=== PATIENT | male | born 1990 ===

== ENCOUNTER 2018-04-12 17:04 | Emergency (ER) | payer OTHER ==
[2018-04-12] MEDS ORDERED: Lidocaine 1%* 5 ML VIAL INJ ONE (17:49)
--- NOTE | 2018-04-12 17:49 | ED ---
Laceration/Wound HPI - HPI Summary HPI Summary: 27 year old male presents with left index finger laceration. He cut it on a knife. area continues to bleed. no foreign body. tetanus is up to date. full ROM of finger. no numbness or tingling. no medical conditions. - History of Current Complaint Stated Complaint: FINGER LACERATION Time Seen by Provider: 04/12/18 17:45 Pain Intensity: 3 - Allergy/Home Medications Allergies/Adverse Reactions: Allergies Allergy/AdvReac Type Severity Reaction Status Date / Time No Known Allergies Allergy Verified 04/12/18 17:36 Home Medications: Home Medications Budesonide [Rhinocort Allergy] 8.43 ml BOTH NARES DAILY PRN 04/12/18 [History Confirmed 04/12/18] PMH/Surg Hx/FS Hx/Imm Hx Endocrine/Hematology History: Denies: Hx Anticoagulant Therapy Respiratory History: Denies: Hx Asthma Infectious Disease History: No Infectious Disease History: Denies: Traveled Outside the [place] in Last 30 Days - Family History Known Family History: Positive: Non-Contributory - Social History Alcohol Use: None Substance Use Type: Reports: None Smoking Status (MU): Never Smoked Tobacco Review of Systems Negative: Fever Negative: Chest Pain Negative: Shortness Of Breath Positive: Other - left index finger laceration All Other Systems Reviewed And Are Negative: Yes Physical Exam Triage Information Reviewed: Yes Vital Signs On Initial Exam: Initial Vitals Temp Pulse Resp BP Pulse Ox 98 F 66 12 115/62 100 04/12/18 17:29 04/12/18 17:29 04/12/18 17:29 04/12/18 17:29 04/12/18 17:29 Vital Signs Reviewed: Yes Appearance: Positive: Well-Appearing Skin: Positive: Warm, Dry, Other - 2cm superficial laceration to left index finger near nailbed Head/Face: Positive: Normal Head/Face Inspection Eyes: Positive: Normal, Conjunctiva Clear ENT: Positive: Pharynx normal Respiratory/Lung Sounds: Positive: Clear to Auscultation, Breath Sounds Present Cardiovascular: Positive: Normal, RRR Musculoskeletal: Positive: Strength/ROM Intact - left index finger, Other - capillary refill<2 secs Neurological: Positive: Normal Psychiatric: Positive: Normal Procedures - Laceration/Wound Repair 1 Location: Other - left index finger Description: Irregular Anesthesia: Digital, 1.0% Length, Depth and Shape: 2cm superficial Irrigated w/ Saline (ccs): 200 Suture Type: Prolene Number of Sutures: 2 Sterile Dressing Applied?: Yes - telfa and coband Diagnostics - Vital Signs Vital Signs Temp Pulse Resp BP Pulse Ox 04/12/18 17:29 98 F 66 12 115/62 100 - Laboratory Lab Statement: Any lab studies that have been ordered have been reviewed, and results considered in the medical decision making process. Laceration Repair Course/Dx - Course Course Of Treatment: 27 year old male presents with left index finger laceration. He cut it on a knife. area continues to bleed. no foreign body. tetanus is up to date. full ROM of finger. no numbness or tingling. no medical conditions. on exam has 2cm superficial laceration near end of left index finger laceration. cleaned area and closed with 2 sutures and placed pressure dressing. patient understand and agrees with plan. - Differential Dx Differental Diagnoses: Abrasion, Avulsion, Laceration - Clinical Impression Provider Diagnoses: Laceration of left index finger Discharge - Sign-Out/Discharge Documenting (check all that apply): Patient Departure All imaging exams completed and their final reports reviewed: No Studies - Discharge Plan Condition: Good Disposition: HOME Patient Education Materials: Care For Your Stitches (ED) Referrals: No Primary Care Phys,NOPCP [Primary Care Provider] - Additional Instructions: keep dressing on for 48 hours, change at that point and rewrap Take Tylenol or ibuprofen for pain every 6 hours as needed Return to ED or primary in 8-10 days to have sutures removed Return to ED if develop signs of infection such as fever, spreading redness, or pus. - Billing Disposition and Condition Condition: GOOD Disposition: Home - Attestation Statements Provider Attestation: I was available for consult. This patient was seen by the [facility]. The patient was not presented to, seen by, or examined by me. -Yefri
== END 2018-04-12 18:30 | disposition home or self-care (01) ==
LOC: UCEAST 17:04
DX: S61.211A Laceration without foreign body of left index finger without damage to nail, initial encounter (principal); W26.0XXA Contact with knife, initial encounter; Y92.9 Unspecified place or not applicable
CPT/HCPCS: 12001; 99201; G0463

== ENCOUNTER 2018-04-21 16:31 | Emergency (ER) | payer OTHER ==
[2018-04-21 17:56] VITALS: BP 114/73
--- NOTE | 2018-04-21 18:09 | UC ---
HPI Wound/Suture Re-check - HPI Summary HPI Summary: 27 y/o male presents to the urgent care requesting suture removal from his left index s/p laceration on 04/12/2018. Pt reports sutures were placed at the [facility]. Pt states wound healing well w/o any sings of infection and can move finger w/o any problem. Pt denies fever, SOB. chest pain, abdominal pain, N/V/D. - History Of Current Complaint Chief Complaint: UCWounds Stated Complaint: SUTURE REMOVAL Time Seen by Provider: 04/21/18 18:08 Hx Obtained From: Patient Onset/Duration: Sudden Onset, Lasting Days - 10 days, Resolved Severity: Mild Pain Intensity: 0 Pain Scale Used: 0-10 Numeric Surgery Date: 04/12/18 Hands: 1 - [address] - Allergies/Home Medications Allergies/Adverse Reactions: Allergies Allergy/AdvReac Type Severity Reaction Status Date / Time No Known Allergies Allergy Verified 04/21/18 17:56 PMH/Surg Hx/FS Hx/Imm Hx Previously Healthy: Yes - Pt denies PMHX Other History Of: Negative For: Anticoagulant Therapy - Surgical History Surgical History: None - Family History Known Family History: Positive: Cardiac Disease - Social History Occupation: Employed Full-time Lives: With Family Alcohol Use: None Substance Use Type: None Smoking Status (MU): Never Smoked Tobacco - Immunization History Most Recent Tetanus Shot: 2016 Review of Systems All Other Systems Reviewed And Are Negative: Yes Constitutional: Positive: Negative Skin: Positive: Other - laceration repair w/ 2 sutures at the tip of the left index finger healing well Eyes: Positive: Negative ENT: Positive: Negative Respiratory: Positive: Negative Cardiovascular: Positive: Negative Gastrointestinal: Positive: Negative Genitourinary: Positive: Negative Motor: Positive: Negative Neurovascular: Positive: Negative Musculoskeletal: Positive: Negative Neurological: Positive: Negative Psychological: Positive: Negative Is Patient Immunocompromised?: No Physical Exam Triage Information Reviewed: Yes Appearance: Well-Appearing, No Pain Distress Vital Signs: Initial Vital Signs Temp 98 F 04/21/18 17:53 Pulse 67 04/21/18 17:53 Resp 16 04/21/18 17:53 BP 114/73 04/21/18 17:53 Pulse Ox 100 04/21/18 17:53 Vital Signs Reviewed: Yes Eye Exam: Normal ENT Exam: Normal Dental Exam: Normal Neck exam: Normal Respiratory Exam: Normal Cardiovascular Exam: Normal Abdominal Exam: Normal Bowel Sounds: Positive: Present Musculoskeletal Exam: Normal Neurological Exam: Normal Psychological Exam: Normal Skin: Positive: Other - Wound healing well with crusting and moderate granulation over, non tender to palpation, [address] on the lateral side tip of the left index finger. FROM of the left index finger. sensation WNL capillary refill brisk, pulses WNL. Course/Dx - Course Course Of Treatment: 27 y/o male presents to the urgent care requesting suture removal from his left index s/p laceration on 04/12/2018. Pt reports sutures were placed at the [facility]. Pt states wound healing well w/o any sings of infection and can move finger w/o any problem. Pt denies fever, SOB. chest pain, abdominal pain, N/V/D. Hx obtained. Wound healing well with crusting and moderate granulation over, non tender to palpation, [address] on the lateral side tip of the left index finger. 2 sutures removed w/o any difficulty. Pt tolerated well procedure. wound cleaned with sterile water and bacitracin applied over and cover with sterile gauze. Pt advised if redness, pain or fever develops to return to the urgent care or f/u with PCP for further treatment. D/c instructions explained. Pt understood and agreed with plan of care - Differential Dx - Laceration/Wound Differential Diagnoses: Cellulitis, Healing Wound, Suture Removal - Diagnosis Provider Diagnosis: Visit for suture removal Discharge - Sign-Out/Discharge Documenting (check all that apply): Patient Departure - D/c home All imaging exams completed and their final reports reviewed: No Studies - Discharge Plan Condition: Stable Disposition: HOME Patient Education Materials: Acute Wound Care (ED) Referrals: [facility] [place] [facility]IAN REFERRAL [Outside] - If Needed Additional Instructions: 1-Please apply topical triple antibiotic over the wound. Keep wound clean and dry 2- If you develop fever or redness around your finger please return to the Urgent care or your PCP for further management. - Billing Disposition and Condition Condition: STABLE Disposition: Home - Attestation Statements Provider Attestation: I was available for consult. This patient was seen by the [facility]. The patient was not presented to, seen by, or examined by me. -Yefri
== END 2018-04-21 18:29 | disposition home or self-care (01) ==
LOC: UCEAST 16:31
DX: S61.211D Laceration without foreign body of left index finger without damage to nail, subsequent encounter (principal); X58.XXXD Exposure to other specified factors, subsequent encounter